=== PATIENT | male | born 1995 | race Asian ===

== ENCOUNTER 2021-06-10 02:17 | Emergency (ER) | payer SELFPAY ==
[~2021-06-10] VITALS: Ht 172.7 cm; Wt 63.5 kg
[2021-06-10 02:21] VITALS: BP_SYST 137
[2021-06-10] MEDS ORDERED: LIDOCAINE/EPI 1% 1:100000 20 ML VIAL INJ ONE (03:00)
[2021-06-10] MEDS ORDERED: DIPH-TET-PERTUS Vaccine 0.5 ML VIAL (ADACEL) I.M. ONE (03:00)
[2021-06-10] MEDS ORDERED: ACETAMINOPHEN 500 MG TABLET PO ONE (03:00)
[2021-06-10] MEDS ORDERED: BACITRACIN 1 GM OINT TP ONE (03:24)
[2021-06-10 03:38] VITALS: BP_SYST 137
[2021-06-12] MEDS ORDERED: BACITRACIN 1 GM OINT TP ONE (20:15)
== END 2021-06-10 03:36 | disposition home or self-care (01) ==
LOC: SED 02:17
DX: S01.81XA Laceration without foreign body of other part of head, initial encounter (principal); F12.90 Cannabis use, unspecified, uncomplicated; W01.198A Fall on same level from slipping, tripping and stumbling with subsequent striking against other object, initial encounter; Y93.89 Activity, other specified; Y92.89 Other specified places as the place of occurrence of the external cause; Y99.8 Other external cause status
CPT/HCPCS: 90715; 99283